=== PATIENT | male | born 1955 | race Caucasian/White ===

== ENCOUNTER → 2020-12-08 | Outpatient (CLI) | payer OTHER ==
[~2020-12-08] MED LIST: CYCL10TA2 PO; DICL75TA3 PO; IBUP1TAB11 PO; MELA10TA PO
[2020-12-08 12:14] LABS: BASOPHILS % (AUTO) 1 % (0-1); EOSINOPHILS % (AUTO) 5 % (1-7); LYMPHOCYTES % (AUTO) 35 % (22-44); MEAN CORPUSCULAR HEMOGLOBIN 28.8 pg (27.5-34.5); MEAN PLATELET VOLUME 8.8 fL (7.4-10.4); MONOCYTES % (AUTO) 9 % (2-9); NEUTROPHILS % (AUTO) 50 % (42-75); PLATELET COUNT 204 x10^3/uL (130-400); RED BLOOD COUNT 5.42 x10^6/uL (4.38-5.82); RED CELL DISTRIBUTION WIDTH 13.5 % (9.4-14.8)
[2020-12-08 12:15] LABS: MICROSCOPIC NOT IND
[2020-12-08 12:19] LABS: MD NO
[2020-12-08 12:25] LABS: CHLORIDE 106 mmol/L (98-107)
[2020-12-08 12:26] LABS: INTERNATIONAL NORMALIZED RATIO 0.96 (0.93-1.1); PROTHROMBIN TIME 10.3 Seconds (9.6-11.5)
[2020-12-08 13:04] LABS: ALANINE AMINOTRANSFERASE 47 U/L (12-78); ALBUMIN 4.5 g/dL (3.4-5.0); ALKALINE PHOSPHATASE 74 U/L (45-117); ANION GAP 6 mmol/L (5-15); BILIRUBIN,TOTAL 0.7 mg/dL (0.2-1.0); CALCIUM 9.4 mg/dL (8.5-10.1); CREATININE 0.97 mg/dL (0.7-1.3); TOTAL PROTEIN 8.3 g/dL (6.4-8.2)
== END | disposition home or self-care (01) ==
LOC: STAR 10:34
PROVIDERS: ATTEND Neurological Surgery
DX: Z01.810 Encounter for preprocedural cardiovascular examination (principal); Z01.811 Encounter for preprocedural respiratory examination; Z01.812 Encounter for preprocedural laboratory examination; M47.892 Other spondylosis, cervical region; M54.12 Radiculopathy, cervical region; M47.12 Other spondylosis with myelopathy, cervical region; M48.02 Spinal stenosis, cervical region; R79.1 Abnormal coagulation profile; R82.90 Unspecified abnormal findings in urine; R94.31 Abnormal electrocardiogram [ECG] [EKG]; J98.4 Other disorders of lung; Z20.822 Contact with and (suspected) exposure to COVID-19
CPT/HCPCS: 36415; 71046; 80053; 81003; 85025; 85610; 85730; 93005; U0003

== ENCOUNTER 2020-12-14 05:45 | Inpatient (IN) | payer OTHER ==
[~2020-12-14] VITALS: Ht 177.8 cm; Wt 86.5 kg
[2020-12-14] MEDS ORDERED: AMLO-150 PO (06:24)
[2020-12-14] MEDS ORDERED: MIDAZOLAM 1 MG/ML, 2ML ONE (06:46)
[2020-12-14] MEDS ORDERED: FENTANYL PF 250 MCG/5ML ONE (06:47)
[2020-12-14] MEDS ORDERED: BACITRACIN 50,000 UNIT ONE (06:52)
[2020-12-14] MEDS ORDERED: EPINEPHRINE 1 MG/ML, 1ML ONE (06:52)
[2020-12-14] MEDS ORDERED: BUPIVACAINE/PF 0.5% ONE (06:52)
[2020-12-14] MEDS ORDERED: PROPOFOL 50 ML ONE ×3 (06:53→08:29)
[2020-12-14] MEDS ORDERED: LACTATED RINGERS 1,000 ML IV SCH (07:00)
[2020-12-14] MEDS ORDERED: CHLORHEXIDINE 15 ML UDC PO ONE (07:00)
[2020-12-14] MEDS ORDERED: REMIFENTANIL 2 MG ONE (07:21)
[2020-12-14] MEDS ORDERED: hydrALAzine 20 MG/ML, 1ML IV PRN (09:00)
[2020-12-14] MEDS ORDERED: ONDANSETRON 2MG/ML, 2ML IVPush PRN (09:00)
[2020-12-14] MEDS ORDERED: METHOCARBAMOL 1,000 MG in DEXTROSE 5% 100 ML IV PRN (09:00)
[2020-12-14] MEDS ORDERED: EPHEDRINE 50 MG/ML, 1ML IVPush PRN (09:00)
[2020-12-14] MEDS ORDERED: ACETAMINOPHEN 325 MG TABLET PO PRN (09:00)
[2020-12-14] MEDS ORDERED: LABETALOL 5MG/ML, 20ML IV PRN (09:00)
[2020-12-14] MEDS ORDERED: HYDROmorphone 1 MG/ML, 1ML INJ IVPush PRN (09:00)
[2020-12-14] MEDS ORDERED: OXYcodone 5 MG/5 ML ORAL.SOL UDC PO PRN (09:00)
[2020-12-14] MEDS ORDERED: MEPERIDINE/PF 25MG/0.5ML IVPush PRN (09:00)
[2020-12-14] MEDS ORDERED: LORazepam 2 MG/ML, 1ML IVPush PRN (09:00)
[2020-12-14] MEDS ORDERED: PROMETHAZINE 25 MG/ML, 1ML IVPush PRN (09:00)
[2020-12-14] MEDS ORDERED: CEFAZOLIN 1,000 MG ONE (09:23)
[2020-12-14] MEDS ORDERED: NEOSTIGMINE 1 MG/ML, 10ML ONE (09:23)
[2020-12-14] MEDS ORDERED: ONDANSETRON 2MG/ML, 2ML ONE (09:23)
[2020-12-14] MEDS ORDERED: ROCURONIUM 10MG/ML,5ML ONE (09:23)
[2020-12-14] MEDS ORDERED: DEXAMETHASONE 4 MG/ML, 1ML ONE (09:23)
[2020-12-14] MEDS ORDERED: GLYCOPYRROLATE 0.2MG/1ML, 5ML ONE (09:23)
[2020-12-14] MEDS ORDERED: SUCCINYLCHOLINE 20 MG/ML, 10ML ONE (09:23)
[2020-12-14] MEDS ORDERED: PROPOFOL 10 MG/ML, 20ML ONE (09:23)
[2020-12-14] MEDS ORDERED: FENTANYL PF 100 MCG/2ML ONE ×2 (09:57→10:24)
[2020-12-14] MEDS ORDERED: ACETAMINOPHEN 650 MG/20.3 ML UDC ONE (10:24)
[2020-12-14] MEDS ORDERED: OXYcodone 5 MG/5 ML ORAL.SOL UDC ONE (10:24)
[2020-12-14] MEDS ORDERED: CYCLOBENZAPRINE 10 MG TABLET ONE (10:24)
[2020-12-14] MEDS: FENTANYL PF 100 MCG/2ML IV PRN ×2 (10:25→10:35)
[2020-12-14] MEDS ORDERED: CYCLOBENZAPRINE 10 MG TABLET PO ONE (11:35)
[2020-12-14] MEDS ORDERED: DIPHENHYDRAMINE 25 MG CAPSULE PO PRN (12:30)
[2020-12-14] MEDS ORDERED: BISACODYL 10 MG SUPP PR PRN (12:30)
[2020-12-14] MEDS ORDERED: DIPHENHYDRAMINE 50 MG/ML, 1ML IM PRN (12:30)
[2020-12-14] MEDS ORDERED: HYDROcodone/APAP 5/325 TABLET PO PRN (12:30)
[2020-12-14] MEDS ORDERED: ONDANSETRON 2MG/ML, 2ML IV PRN (12:30)
[2020-12-14] MEDS ORDERED: PROMETHAZINE 25 MG/ML, 1ML IM PRN (12:30)
[2020-12-14] MEDS ORDERED: HYDROmorphone 2MG TABLET PO PRN (12:30)
[2020-12-14] MEDS: D5%-0.9% NACL+KCL 20MEQ 1,000 ML IV SCH ×3 (12:30→22:30)
[2020-12-14] MEDS: LABETALOL 5MG/ML, 20ML IV SCH ×2 (12:30→20:30)
[2020-12-14] MEDS ORDERED: MAGNESIUM HYDROXIDE 8%, 30ML UDC PO PRN (12:30)
[2020-12-14] MEDS ORDERED: HYDROmorphone 2 MG/ML, 1ML IM PRN (12:30)
[2020-12-14] MEDS ORDERED: DIPHENHYDRAMINE 50 MG/ML, 1ML IVPush PRN (12:30)
[2020-12-14] MEDS ORDERED: OXYcodone IR 5MG TABLET PO PRN (13:00)
[2020-12-14 14:15] VITALS: BP 133/87
[2020-12-14] MEDS: OXYcodone IR 5MG TABLET PO PRN ×3 (15:07→21:40)
[2020-12-14 18:28] VITALS: BP 141/81
[2020-12-14] MEDS: CEFAZOLIN PMX 1GM/50ML 50 ML IVPB SCH (18:34)
[2020-12-14] MEDS: CYCLOBENZAPRINE 10 MG TABLET PO SCH (18:35)
[2020-12-14] MEDS ORDERED: MELATONIN 5 MG TABLET PO SCH (21:00)
[2020-12-14 23:42] VITALS: BP 123/80
[2020-12-15] MEDS: CYCLOBENZAPRINE 10 MG TABLET PO SCH ×3 (02:16→17:33)
[2020-12-15] MEDS: CEFAZOLIN PMX 1GM/50ML 50 ML IVPB SCH (02:18)
[2020-12-15] MEDS: OXYcodone IR 5MG TABLET PO PRN ×5 (02:22→19:43)
[2020-12-15 03:02] VITALS: BP 126/76
[2020-12-15] MEDS: LABETALOL 5MG/ML, 20ML IV SCH ×3 (04:30→19:41)
[2020-12-15 07:17] VITALS: BP 137/89
[2020-12-15] MEDS ORDERED: OXYC5TAB98 PO (08:11)
[2020-12-15] MEDS: D5%-0.9% NACL+KCL 20MEQ 1,000 ML IV SCH ×2 (08:35→17:37)
[2020-12-15] MEDS ORDERED: AMLODIPINE 5 MG TABLET PO SCH (09:00)
[2020-12-15] MEDS ORDERED: SENNA/DOCUSATE TABLET PO SCH (09:00)
[2020-12-15] MEDS ORDERED: ENOXAPARIN 40 MG/0.4 ML SQ SCH (10:00)
[2020-12-15 13:25] VITALS: BP 159/90
[2020-12-15] MEDS ORDERED: SODIUM CHLORIDE 0.9%, 500ML IVBOLUS ONE (13:30)
[2020-12-15 16:00] VITALS: BP 162/96
[2020-12-15] MEDS ORDERED: LABETALOL 5MG/ML, 20ML IVPush ONE (17:00)
[2020-12-15] MEDS ORDERED: SODIUM CHLORIDE 0.9% 1,000ML IVBOLUS ONE (18:30)
[2020-12-15 19:05] VITALS: BP 146/82
[2020-12-15 20:00] VITALS: BP 148/86
== END 2020-12-15 20:30 | disposition home or self-care (01) | DRG 472 ==
LOC: ORIP 05:45 → 4NE 11:53
PROVIDERS: ADMIT Neurological Surgery; ATTEND Neurological Surgery
PROC: 0RG20A0 Fusion of 2 or more Cervical Vertebral Joints with Interbody Fusion Device, Anterior Approach, Anterior Column, Open Approach (ICD-10-PCS; 2020-12-14)
PROC: 01N10ZZ Release Cervical Nerve, Open Approach (ICD-10-PCS; 2020-12-14)
PROC: 00NW0ZZ Release Cervical Spinal Cord, Open Approach (ICD-10-PCS; 2020-12-14)
PROC: 4A11X4G Monitoring of Peripheral Nervous Electrical Activity, Intraoperative, External Approach (ICD-10-PCS; 2020-12-14)
PROC: 0PB30ZZ Excision of Cervical Vertebra, Open Approach (ICD-10-PCS; principal; 2020-12-14 07:30)
DX: M48.02 Spinal stenosis, cervical region (principal); M47.12 Other spondylosis with myelopathy, cervical region; M47.892 Other spondylosis, cervical region; E78.5 Hyperlipidemia, unspecified; F41.9 Anxiety disorder, unspecified; I10 Essential (primary) hypertension; J44.9 Chronic obstructive pulmonary disease, unspecified; M47.22 Other spondylosis with radiculopathy, cervical region; M43.12 Spondylolisthesis, cervical region; Z79.899 Other long term (current) drug therapy
CPT/HCPCS: 36415; 72040; S0020; 86850; 86900; 93005; 95938; 95941; C1713; G0378; J0171; J0690; J1100; J1650; J2250; J2405; J2704; J2710; J3010; C1889; J0330; J3480; J7030; J7040; J7120

== ENCOUNTER → 2021-04-02 | Outpatient (CLI) | payer OTHER ==
[~2021-04-02] MED LIST changes: +AMLO-150 PO; +OXYC5TAB98 PO
== END | disposition home or self-care (01) ==
LOC: RAD 09:33
PROVIDERS: ATTEND Physician Assistant
DX: M48.02 Spinal stenosis, cervical region (principal); M43.22 Fusion of spine, cervical region
CPT/HCPCS: 72040; 72125